=== PATIENT | female | born 1975 | race Caucasian/White ===

== ENCOUNTER 2017-07-29 20:10 | Emergency (ER) | payer BC ==
--- NOTE | 2017-07-29 21:54 | RAD ---
TWO VIEWS CHEST 07/29/17 PROVIDED CLINICAL HISTORY: Fever. FINDINGS: Cardiac and mediastinal silhouette is within normal limits. The lungs appear clear. No pleural fluid or pneumothorax apparent. IMPRESSION: No evidence for an acute cardiopulmonary process. POS: [facility]
[2017-07-29] MEDS ORDERED: Ketorolac Tromethamine 60 MG/2 ML VIAL ONE (22:20)
[2017-07-29] MEDS ORDERED: predniSONE 20 MG TAB ONE (22:21)
== END 2017-07-29 23:45 | disposition home or self-care (01) ==
LOC: ERS 20:10
DX: J40 Bronchitis, not specified as acute or chronic (principal); E03.9 Hypothyroidism, unspecified; F41.9 Anxiety disorder, unspecified; F32.9 Major depressive disorder, single episode, unspecified; Z79.899 Other long term (current) drug therapy
CPT/HCPCS: 71020; 81025; 93005; 96372; J1885; J7506

== ENCOUNTER 2017-12-18 16:11 | Outpatient (CLI) | payer BC | END 2017-12-18 16:12 | disposition home or self-care (01) | LOC: BICMAMMO 16:11 | PROVIDERS: ATTEND Obstetrics & Gynecology | DX: Z12.31 Encounter for screening mammogram for malignant neoplasm of breast (principal); R92.1 Mammographic calcification found on diagnostic imaging of breast; Z80.3 Family history of malignant neoplasm of breast | CPT/HCPCS: 77063; 77067 ==

== ENCOUNTER 2019-03-23 13:06 | Outpatient (CLI) | payer BC ==
--- NOTE | 2019-03-29 06:43 | MMO ---
Bilateral MAMMO Bilat Screen [facility]. CLINICAL HISTORY: Patient is 43 years old and is seen for screening. The patient has the following family history of breast cancer: maternal aunt, malignant (generic). The patient has no personal history of cancer. VIEWS: The views performed were: bilateral craniocaudal with tomosynthesis and bilateral mediolateral oblique with tomosynthesis. FILMS COMPARED: The present examination has been compared to a prior imaging study performed at [facility] on 12/18/2017. MAMMOGRAM FINDINGS: The breasts are extremely dense, which may lower the sensitivity of mammography. There are no suspicious masses, suspicious calcifications, or new areas of architectural distortion. IMPRESSION: THERE IS NO MAMMOGRAPHIC EVIDENCE OF MALIGNANCY. A ROUTINE FOLLOW-UP MAMMOGRAM IN 1 YEAR IS RECOMMENDED. THE RESULTS OF THIS EXAM WERE SENT TO THE PATIENT. ACR BI-RADS Category 1 - Negative MAMMOGRAPHY NOTE: 1. A negative mammogram report should not delay a biopsy if a dominant of clinically suspicious mass is present. 2. Approximately 10% to 15% of breast cancers are not detected by mammography. 3. Adenosis and dense breasts may obscure an underlying neoplasm. Reported by: DEAN BEY MD Electonically Signed: [id number]
== END 2019-03-23 13:07 | disposition home or self-care (01) ==
LOC: BICMAMMO 13:06
PROVIDERS: ATTEND Obstetrics & Gynecology
DX: Z12.31 Encounter for screening mammogram for malignant neoplasm of breast (principal); Z80.3 Family history of malignant neoplasm of breast
CPT/HCPCS: 77063; 77067

== ENCOUNTER 2019-11-11 13:33 | Outpatient (CLI) | payer BC ==
--- NOTE | 2019-11-11 14:31 | MMO ---
Left Breast MAMMO Unilat Diag [facility]. CLINICAL HISTORY: Patient is 44 years old and is seen for diagnostic exam and lump or thickening in the left breast. The patient has the following family history of breast cancer: maternal aunt, malignant (generic). The patient has no personal history of cancer. VIEWS: The views performed were: left craniocaudal with tomosynthesis; left mediolateral oblique with tomosynthesis; and left mediolateral with tomosynthesis. FILMS COMPARED: The present examination has been compared to prior imaging studies performed at [facility] on 12/18/2017, 03/23/2019 and 11/11/2019. This study has been interpreted with the assistance of computer-aided detection. MAMMOGRAM FINDINGS: The breast is extremely dense, which may lower the sensitivity of mammography. There is no radiographic abnormality in the region of the palpable abnormality in the anterior region of the left breast at 2 o'clock. There is slight nodularity of the left breast in the upper outer quadrant on the mammogram. Heterogenous appearing breast tissue is seen in the region of palpable abnormality in the left breast 2:00 position by sonography. A 1.4 cm ill defined mass like prominence was seen on ultrasound in the left breast 3:00 position. This lesion contains ducts and blends along its posterior and anterior margin. It remained conspicuous on my ultrasound exam. Incidental cyst is seen in the left breast 4:00 by ultrasound. IMPRESSION: PALPABLE ABNORMALITY IN THE LEFT BREAST REQUIRES ADDITIONAL EVALUATION. BREAST MRI IS RECOMMENDED. BREAST MR WOULD BE HELPFUL TO FURTHER EVALUATE THE PALPABLE REGION OF CONCERN IN THE LEFT BREAST AND THE INCIDENTAL MASS LIKE PROMINENCE SEEN SONOGRAPHICALLY IN THE LEFT BREAST 3:00 POSITION, ANTERIOR DEPTH. THE BREAST MR WOULD ALSO BE HELPFUL IN SCREENING THE CONTRALATERAL RIGHT BREAST THE PATIENT IS EXTREMELY DENSE. THE RESULTS OF THIS EXAM WERE SENT TO THE PATIENT. ACR BI-RADS Category 0 - Incomplete: Need additional imaging evaluation. [facility] will notify the patient of the need for additional imaging services. MAMMOGRAPHY NOTE: 1. A negative mammogram report should not delay a biopsy if a dominant of clinically suspicious mass is present. 2. Approximately 10% to 15% of breast cancers are not detected by mammography. 3. Adenosis and dense breasts may obscure an underlying neoplasm. Reported by: FELICIA SALDANA MD Electonically Signed: [id number]
--- NOTE | 2019-11-11 14:48 | ULT ---
LEFT BREAST DIAGNOSTIC ULTRASOUND: INDICATION: Palpable abnormality of the left breast 2 o'clock position, 1 cm from the nipple. COMPARISON: Diagnostic mammogram of the left breast dated 11/11/2019 and prior screening evaluation dated and 12/18/2017. FINDINGS: Within the region of palpable interest is a slightly heterogeneous region of breast parenchyma withou t a definable mass. On the patient's mammographic evaluation, there is prominent density and nodularity within the upper aspect of the left breast. Sonographic evaluation of the left breast 3 o'clock region demonstrates a 1.2 cm accentuated nodule of breast tissue. There are internal ducts extending through this nodular prominence with some blending along the posterior and superior margins of the lesion. A repeat ultr asound of this area demonstrates again a conspicous nodular prominence in this location. Incidental cyst measuring 6 mm is seen within the left breast 4 o'clock position. IMPRESSION: 1. BIRADS category 0 - incomplete evaluation - need for additional imaging. 2. There is slightly heterogeneous breast tissue seen underlying the palpable region of interest in the left breast 2 o'clock on the sonogram only. The patient is extremely dense on the breast mammogr am limiting mammographic evaluation. There was slight nodularity seen within the upper outer aspect of the left breast near the palpable r egion of interest on the mammogram. Sonographic evaluation of this area demonstrated in the left sushil ast 3 o'clock demonstrated an accentuated ill-defined hypoechoic nodular prominence of suspected eliecer st tissue measuring 1.2 cm. There is the appearance of ducts extending through this nodular prominen ce with blending of the posterior and superior margins suggesting that this is an accentuated breast lobule. An ill-defined left breast mass cannot be entirely excluded. Incidental cyst is seen in the left breast 4 o'clock position. Due to the extent of the patient's breast density, which is extremely dense, patient would benefit fr om further evaluation of a breast MRI. The breast MRI would be a diagnostic breast MRI used to categ orize the heterogeneous breast tissue in the palpable region left breast 2 o'clock position. The lef t breast MRI would also be used to evaluate the suspected breast lobule in the left breast 3 o'clock position. With the extent of the patient's breast density, screening evaluation by MRI of the right breast would also be helpful. Due to the coronavirus protective measures, Dr. Marcus Starkey's office was unavailable to review the shekhar stiles findings with on 11/11/2019. Findings were discussed with the patient prior to her leaving the breast center. CODE CR
== END 2019-11-11 13:34 | disposition home or self-care (01) ==
LOC: BICMAMMO 13:33
PROVIDERS: ATTEND Obstetrics & Gynecology
DX: N63.20 Unspecified lump in the left breast, unspecified quadrant (principal); N63.11 Unspecified lump in the right breast, upper outer quadrant
CPT/HCPCS: G0279

== ENCOUNTER 2019-12-12 10:36 | Outpatient (CLI) | payer BC ==
--- NOTE | 2019-12-12 16:02 | MRI ---
MRI BILATERAL BREASTS WITHOUT AND WITH CONTRAST: COMPARISON: Breast ultrasound and mammogram 11/11/2019 and screening mammogram 03/23/2019, 12/18/2017. TECHNIQUE: Multiplanar, multisequence MRI images were obtained of the bilateral breasts without and with IV cont rast. FINDINGS: Extremely dense breast tissue seen. Mild background parenchymal enhancement is seen along the periph mily of the breast tissue in a picture framing pattern. There is a 5 mm cyst in the outer aspect of t he left breast. There are 2 well-circumscribed masses in the left breast. One is seen in the upper outer left breast measuring 9 mm in size, middle depth. The other is seen at the 12 o'clock position of the left breast measuring 6 mm in size, posterior depth. These 2 well-circumscribed masses demon strate type I slow persistent enhancement curves without washout. No enhancing masses are seen in th e right breast. No axillary adenopathy is seen. No internal mammary lymph nodes are seen. The visualized anterior liver and osseous structures are unremarkable. IMPRESSION: There are 2 well-circumscribed benign-appearing masses in the left breast. One of these was seen wit h the ultrasound. These most likely represent fibroadenomas. No suspicious enhancement is seen in e ither breast. BIRADS category 2 - benign findings. Annual screening mammography is recommended. POS: [facility]
== END 2019-12-12 10:37 | disposition home or self-care (01) ==
LOC: BICMRI 10:36
PROVIDERS: ATTEND Obstetrics & Gynecology
DX: R92.8 Other abnormal and inconclusive findings on diagnostic imaging of breast (principal); N63.21 Unspecified lump in the left breast, upper outer quadrant; N63.25 Unspecified lump in the left breast, overlapping quadrants
CPT/HCPCS: A9577; C8908

== ENCOUNTER 2020-05-17 10:30 | Outpatient (CLI) | payer BC ==
--- NOTE | 2020-05-17 11:35 | MMO ---
Bilateral MAMMO Bilat Screen [facility]. CLINICAL HISTORY: Patient is 45 years old and is seen for screening. The patient has the following family history of breast cancer: maternal aunt, malignant (generic). The patient has no personal history of cancer. VIEWS: The views performed were: bilateral craniocaudal with tomosynthesis and bilateral mediolateral oblique with tomosynthesis. FILMS COMPARED: The present examination has been compared to prior imaging studies performed at [facility] on 03/23/2019, 11/11/2019 and 12/12/2019. This study has been interpreted with the assistance of computer-aided detection. MAMMOGRAM FINDINGS: The breasts are extremely dense, which may lower the sensitivity of mammography. There are stable benign appearing calcifications seen in both breasts. There are no suspicious masses, suspicious calcifications, or new areas of architectural distortion. IMPRESSION: THERE IS NO MAMMOGRAPHIC EVIDENCE OF MALIGNANCY. A ROUTINE FOLLOW-UP MAMMOGRAM IN 1 YEAR IS RECOMMENDED. THE RESULTS OF THIS EXAM WERE SENT TO THE PATIENT. ACR BI-RADS Category 2 - Benign finding MAMMOGRAPHY NOTE: 1. A negative mammogram report should not delay a biopsy if a dominant of clinically suspicious mass is present. 2. Approximately 10% to 15% of breast cancers are not detected by mammography. 3. Adenosis and dense breasts may obscure an underlying neoplasm. Reported by: SPIKE PITT MD Electonically Signed: [id number]
== END 2020-05-17 10:31 | disposition home or self-care (01) ==
LOC: BICMAMMO 10:30
PROVIDERS: ATTEND Obstetrics & Gynecology
DX: Z12.31 Encounter for screening mammogram for malignant neoplasm of breast (principal); Z80.3 Family history of malignant neoplasm of breast
CPT/HCPCS: 77063; 77067

== ENCOUNTER 2021-09-30 12:04 | Outpatient (CLI) | payer BC | END 2021-09-30 12:05 | disposition home or self-care (01) | LOC: BICMAMMO 12:04 | PROVIDERS: ATTEND Obstetrics & Gynecology | DX: Z12.31 Encounter for screening mammogram for malignant neoplasm of breast (principal); Z80.3 Family history of malignant neoplasm of breast | CPT/HCPCS: 77063; 77067 ==

== ENCOUNTER 2022-11-06 12:29 | Emergency (ER) | payer BC ==
[2022-11-06 13:28] LABS: #Eosinphils 0.1 thou/uL (0.0-0.7); #Lymphocytes 2.1 thou/uL (1.20-3.40); #Monocytes 0.5 thou/uL (0.11-0.59); #Neutrophils 5.2 thou/uL (1.40-6.50); %Basophils 0.5 % (0.0-1.0); %Eosinophils 1.8 % (0.0-10.0); %Monocytes 6.3 % (0.0-10.0); %Neutrophils 65.5 % (42.0-75.0); Hemoglobin 13.5 g/dL (12.0-16.0); Mean Corpuscular HGB CONC 32.9 g/dL (32.0-36.0); Mean Corpuscular Hemoglobin 28.6 pg (27.0-31.0); Mean Platelet Volume 7.7 fL (7.4-10.4); Platelet Count 397 10x3/uL (130-400); RBC Distribution Width 12.4 % (11.5-14.5); White Blood Cell (WBC) Count 7.9 10x3/uL (4.8-10.8)
[2022-11-06 13:54] LABS: ALT (SGPT) 15 U/L (8-55); AST (SGOT) 16 U/L (5-34); Albumin 4.2 g/dL (3.5-5.0); Alkaline Phosphatase 85 U/L (40-110); Anion Gap 12 mmol/L (10-20); BUN (Urea Nitrogen) 11 mg/dL (7.0-18.7); Bilirubin, Total 0.2 mg/dL (0.2-1.2); Calc. Creatinine Clearance 0 mL/min (70-130); Calcium 9.9 mg/dL (7.8-10.44); Carbon Dioxide 25 mmol/L (22-29); Chloride 106 mmol/L (98-107); Estimated GFR 68; Globulin 2.6 g/dL (2.4-3.5); Glucose 104 mg/dL (70-105); Potassium 4.5 mmol/L (3.5-5.1); Protein, Total 6.8 g/dL (6.0-8.3); Sodium 138 mmol/L (136-145)
== END 2022-11-06 15:30 | disposition home or self-care (01) ==
LOC: ERS 12:29
DX: R07.9 Chest pain, unspecified (principal); E05.90 Thyrotoxicosis, unspecified without thyrotoxic crisis or storm
CPT/HCPCS: 36415; 71045; 80053; 84443; 84484; 85025; 93005

== ENCOUNTER 2023-02-17 12:34 | Outpatient (CLI) | payer BC | END 2023-02-17 12:35 | disposition home or self-care (01) | LOC: BICMAMMO 12:34 | PROVIDERS: ATTEND Obstetrics & Gynecology | DX: Z12.31 Encounter for screening mammogram for malignant neoplasm of breast (principal); Z80.3 Family history of malignant neoplasm of breast | CPT/HCPCS: 77063; 77067 ==

== ENCOUNTER 2025-03-27 11:01 | Outpatient (CLI) | payer BC | END 2025-03-27 11:02 | disposition home or self-care (01) | LOC: BICMAMMO 11:01 | PROVIDERS: ATTEND Internal Medicine | DX: Z12.31 Encounter for screening mammogram for malignant neoplasm of breast (principal); Z80.3 Family history of malignant neoplasm of breast | CPT/HCPCS: 77063; 77067 ==